=== PATIENT | male | born 1995 | race African-American/Black ===

== ENCOUNTER 2023-09-19 16:08 | Emergency (ER) | payer MEDICAID ==
[~2023-09-19] VITALS: Ht 190.5 cm; Wt 110.0 kg
[~2023-09-19 16:08] MED LIST: LEVO-65 MT
[2023-09-19 17:06] VITALS: BP 116/76; PULSE 99; RESP 16; TEMP 98.4; O2SAT 100
[2023-09-19] MEDS ORDERED: COLO-487 MC (18:26)
[2023-09-19] MEDS ORDERED: [UNRECOGNIZED DRUG - CODE] MC (18:26)
[2023-09-19] MEDS ORDERED: [UNRECOGNIZED DRUG - CODE] MC (18:26)
== END 2023-09-19 19:04 | disposition home or self-care (01) ==
LOC: ER 16:08
DX: R68.89 Other general symptoms and signs (principal); Z93.3 Colostomy status
CPT/HCPCS: 99281

== ENCOUNTER 2023-09-28 23:52 | Emergency (ER) | payer MEDICAID ==
[~2023-09-28] VITALS: Ht 190.5 cm; Wt 114.0 kg
[~2023-09-28 23:52] MED LIST changes: +COLO-487 MC; +[UNRECOGNIZED DRUG - CODE] MC; +[UNRECOGNIZED DRUG - CODE] MC
[2023-09-29 00:05] VITALS: O2SAT 98
[2023-09-29] MEDS ORDERED: PANTOPRAZOLE SODIUM 40 MG/VIAL IV STA (00:24)
[2023-09-29] MEDS ORDERED: METOCLOPRAMIDE HCL 10MG/2ML VIAL IV STA (00:24)
[2023-09-29] MEDS ORDERED: MORPHINE SULFATE 4 MG/ML CPJ (NOT FOR IM USE) IV STA (00:24)
[2023-09-29] MEDS ORDERED: SODIUM CHLORIDE 0.9% 1,000 ML IV ONE (00:30)
[2023-09-29 01:11] LABS: BASOPHILS % 0.3 % (0.0-2.0); EOSINOPHILS % 3.5 % (0.0-5.0); HEMATOCRIT. 34.9 % (42.0-52.0); HEMOGLOBIN. 11.3 g/dL (14.0-18.0); MEAN CORPUSCULAR HEMOGLOBIN 29.3 pg (28.0-32.0); MEAN CORPUSCULAR HGB CONC 32.4 g/dL (31.0-37.0); MEAN CORPUSCULAR VOLUME 90.4 fL (80.0-94.0); MONOCYTES % 11.2 % (2.0-8.0); PLATELET 257 x1000/uL (130-400); RED BLOOD CELL COUNT 3.86 mill/uL (4.7-6.1); RED CELL DISTRIBUTION WIDTH 14.8 % (11.6-14.6); WHITE BLOOD COUNT 6.7 x1000/uL (4.5-11.0)
[2023-09-29] MEDS ORDERED: KETOROLAC 30MG/ML VIAL IV NR (02:15)
[2023-09-29 03:11] LABS: ALANINE AMINOTRANSFERASE 12 IU/L (10-49); ALBUMIN 4.1 g/dL (3.2-4.8); ASPARTATE AMINOTRANSFERASE 15 IU/L (<34); BILIRUBIN TOTAL 0.5 mg/dL (0.1-1.0); CALCIUM 8.7 mg/dL (8.7-10.4); CARBON DIOXIDE 24 mEq/L (21-32); CHLORIDE 107 mEq/L (98-107); CREATININE 0.8 mg/dL (0.6-1.3); GLUCOSE 101 mg/dL (70-105); POTASSIUM 3.6 mEq/L (3.5-5.1); PROTEIN TOTAL 6.9 g/dL (6.0-8.3); SODIUM 141 mEq/L (136-145); UREA NITROGEN BLOOD 12 mg/dL (9-23)
[2023-09-29 03:51] LABS: ETHANOL BLOOD < 10 mg/dL (<10)
[2023-09-29] MEDS ORDERED: KETOROLAC 30MG/ML VIAL IV ONE (06:15)
[2023-09-29] MEDS ORDERED: IOHEXOL-300 100 ML BOTTLE ONE (07:08)
[2023-09-29] MEDS ORDERED: HYDR-4001 MT (07:24)
[2023-09-29 07:49] VITALS: BP 129/67; PULSE 98; RESP 18; TEMP 98
== END 2023-09-29 07:53 | disposition home or self-care (01) ==
LOC: ER 23:58
DX: R10.9 Unspecified abdominal pain (principal); G89.18 Other acute postprocedural pain; J45.909 Unspecified asthma, uncomplicated
CPT/HCPCS: 99285; 80053; 80320; 83605; 83690; 85025; 86850; 86900; 86901; 36415; 71045; 74177; 96361; 96374; 96375; 96376; Q9967; J1885; J2765; C9113; J2270; J7030; Z7610 ×4; G0480